=== PATIENT | female | born 1985 | race Caucasian/White ===

== ENCOUNTER → 2017-08-29 | Outpatient (REF) | payer BC ==
[2017-08-29 13:16] LABS: IRON (FE) 143 UG/DL (50-170)
[2017-08-29 13:17] LABS: VITAMIN B12 LEVEL 592 PG/ML (247-911)
== END ==
LOC: M LAB REF 11:50
DX: D64.9 Anemia, unspecified (principal); R63.4 Abnormal weight loss
CPT/HCPCS: 83540

== ENCOUNTER → 2018-08-12 | Outpatient (REF) | payer BC, OTHER ==
[~2018-08-12] MED LIST: ALPR0.25; CIPR-249 PO; FLOM0.4C39 PO; LARI1TAB5; PROT1TAB2 PO; PYRI1TAB5 PO
[2018-08-12 15:52] LABS: BASO # 0.1 10^3/uL (0.0-0.2); BASO % 0.7 % (0.0-1.0); EOS # 0.1 10^3/uL (0.0-0.50); EOS % 0.7 % (0.0-3.0); HEMATOCRIT 42.7 % (36.0-47.0); HEMOGLOBIN 14.6 g/dl (12.0-15.5); LYMPH % 27.5 % (24.0-44.0); MEAN CORPUSCULAR HEMOGLOBIN 29.9 pg (27.0-33.0); MEAN CORPUSCULAR HGB CONC 34.2 g/dl (32.0-36.5); MEAN CORPUSCULAR VOLUME 87.5 fl (80.0-96.0); MONO # 0.6 10^3/uL (0.0-0.8); MONO % 7.8 % (0.0-5.0); NEUTROPHILS # 4.6 10^3/uL (1.8-7.7); NEUTROPHILS % 62.6 % (36.0-66.0); PLATELET COUNT, AUTOMATED 311 10^3/uL (150-450); RED BLOOD COUNT 4.88 10^6/uL (4.00-5.40); WHITE BLOOD COUNT 7.3 10^3/uL (4.0-10.0)
[2018-08-12 15:57] LABS: ALBUMIN 4.3 GM/DL (3.2-5.2); ALT/SGPT 22 U/L (12-78); BILIRUBIN,TOTAL 0.8 MG/DL (0.2-1.0); BLOOD UREA NITROGEN 14 MG/DL (7-18); CALCIUM LEVEL 9.2 MG/DL (8.5-10.1); CARBON DIOXIDE LEVEL 28 MEQ/L (21-32); CHLORIDE LEVEL 102 MEQ/L (98-107); CREATININE FOR GFR 0.82 MG/DL (0.55-1.30); GLOMERULAR FILTRATION RATE > 60.0 (>60); GLUCOSE, FASTING 88 MG/DL (70-100); LIPASE 120 U/L (73-393); POTASSIUM SERUM 3.7 MEQ/L (3.5-5.1); SODIUM LEVEL 140 MEQ/L (136-145); TOTAL PROTEIN 8.1 GM/DL (6.4-8.2)
== END ==
LOC: M LABDRWAD 15:35
PROVIDERS: ATTEND Physician Assistant
DX: R10.9 Unspecified abdominal pain (principal)

== ENCOUNTER 2018-08-13 11:14 | Emergency (ER) | payer BC, OTHER ==
[~2018-08-13] VITALS: Ht 149.9 cm; Wt 54.5 kg
[2018-08-13] MEDS ORDERED: LARI1TAB5 (11:23)
[2018-08-13] MEDS ORDERED: ALPR0.25 (11:23)
[2018-08-13 12:23] LABS: BASO # 0.1 10^3/uL (0.0-0.2); BASO % 0.8 % (0.0-1.0); EOS # 0.1 10^3/uL (0.0-0.50); HEMATOCRIT 43.5 % (36.0-47.0); HEMOGLOBIN 15.1 g/dl (12.0-15.5); LYMPH # 1.9 10^3/uL (1.5-4.5); LYMPH % 30.5 % (24.0-44.0); MEAN CORPUSCULAR HEMOGLOBIN 30.7 pg (27.0-33.0); MEAN CORPUSCULAR HGB CONC 34.7 g/dl (32.0-36.5); MEAN CORPUSCULAR VOLUME 88.4 fl (80.0-96.0); MONO # 0.6 10^3/uL (0.0-0.8); NEUTROPHILS # 3.6 10^3/uL (1.8-7.7); NEUTROPHILS % 57.5 % (36.0-66.0); PLATELET COUNT, AUTOMATED 286 10^3/uL (150-450); RED BLOOD COUNT 4.92 10^6/uL (4.00-5.40); WHITE BLOOD COUNT 6.2 10^3/uL (4.0-10.0)
[2018-08-13] MEDS ORDERED: PANTOPRAZOLE 40MG INJ (PROTONIX) (C9113) IV ONE (12:30)
[2018-08-13] MEDS ORDERED: METOCLOPRAMIDE INJ 10MG/2ML VIAL (J2765) IV ONE (12:30)
[2018-08-13 12:54] LABS: ALBUMIN 4.1 GM/DL (3.2-5.2); ALT/SGPT 23 U/L (12-78); BILIRUBIN,DIRECT 0.2 MG/DL (0.0-0.2); BILIRUBIN,TOTAL 0.9 MG/DL (0.2-1.0); BLOOD UREA NITROGEN 15 MG/DL (7-18); CALCIUM LEVEL 8.9 MG/DL (8.5-10.1); CARBON DIOXIDE LEVEL 27 MEQ/L (21-32); CHLORIDE LEVEL 103 MEQ/L (98-107); CREATININE FOR GFR 0.72 MG/DL (0.55-1.30); GLOMERULAR FILTRATION RATE > 60.0 (>60); GLUCOSE, FASTING 89 MG/DL (70-100); LIPASE 118 U/L (73-393); POTASSIUM SERUM 4.3 MEQ/L (3.5-5.1); SODIUM LEVEL 140 MEQ/L (136-145)
--- NOTE | 2018-08-13 13:15 | REP ---
KUB: Single view. History: Diffuse abdomen pain. Findings: The bowel gas pattern is normal. There are two calcific densities superimposed on the left mid and lower pole left kidney which may be intrarenal nephrolithiasis. The largest of these measures 4 mm in greatest diameter. No normal. Psoas margins and flank stripes are seen. There is a phlebolith in the left pelvis. Impression: Possible intrarenal nephrolithiasis lower pole left kidney. Otherwise negative KUB. Electronically Signed by Fabian Royal MD 08/13/2018 01:07 P
[2018-08-13] MEDS ORDERED: PYRI1TAB5 PO (13:52)
[2018-08-13] MEDS ORDERED: CIPR-249 PO (13:52)
[2018-08-13] MEDS ORDERED: PROT1TAB2 PO (13:52)
[2018-08-13] MEDS ORDERED: FLOM0.4C39 PO (13:53)
[2018-08-13 14:00] VITALS: BP 113/72
[2018-08-13] MEDS ORDERED: TAMSULOSIN 0.4 MG CAP PO ONE (14:00)
[2018-08-13] MEDS ORDERED: CIPROFLOXACIN 500 MG TAB PO ONE (14:00)
[2018-08-13] MEDS ORDERED: PHENAZOPYRIDINE 100 MG TAB PO ONE (14:00)
== END 2018-08-13 14:08 | disposition home or self-care (01) ==
LOC: M ED 11:14
DX: N20.1 Calculus of ureter (principal); N39.0 Urinary tract infection, site not specified; R11.0 Nausea; Z87.891 Personal history of nicotine dependence; Z79.899 Other long term (current) drug therapy
CPT/HCPCS: 74018; 80048; 80076; 81001; 81025; 83690; 85025; 87088; 87186; 96374; 96375; 99284; C9113; J2765

== ENCOUNTER → 2019-03-14 | Outpatient (REF) | payer BC, OTHER | LOC: M LAB REF 12:14 | PROVIDERS: ATTEND Physician Assistant Medical | DX: J02.9 Acute pharyngitis, unspecified (principal) ==

== ENCOUNTER → 2021-10-31 | Outpatient (CLI) | payer OTHER | LOC: M WUC 11:42 | PROVIDERS: ATTEND Nurse Practitioner Adult Health | DX: M54.50 Low back pain, unspecified (principal) ==

== ENCOUNTER → 2022-01-06 | Outpatient (CLI) | payer OTHER | LOC: M RAD 16:57 | PROVIDERS: ATTEND Student in an Organized Health Care Education/Training Program | DX: M25.512 Pain in left shoulder (principal) ==

== ENCOUNTER → 2022-03-24 | Outpatient (REF) | payer OTHER | LOC: M LAB REF 19:18 | PROVIDERS: ATTEND Internal Medicine | DX: R30.0 Dysuria (principal) ==

== ENCOUNTER 2024-06-08 06:57 | Emergency (ER) | payer OTHER ==
[~2024-06-08] VITALS: Ht 149.9 cm; Wt 63.0 kg
[2024-06-08] MEDS ORDERED: ACET500P3 PO (07:33)
[2024-06-08] MEDS ORDERED: IBUP1TAB7 PO (07:33)
[2024-06-08] MEDS: KETOROLAC 30 MG/ML 1ML VIAL IM ONE (09:20)
[2024-06-08] MEDS ORDERED: NAPR-837 PO (10:16)
[2024-06-08] MEDS ORDERED: TRAM50TA2 PO (10:16)
[2024-06-08 10:31] VITALS: BP 111/59; TEMP 96.2; O2SAT 99
== END 2024-06-08 10:43 | disposition home or self-care (01) ==
LOC: M ED 06:57
DX: M25.512 Pain in left shoulder (principal); M75.32 Calcific tendinitis of left shoulder; F41.9 Anxiety disorder, unspecified; Z79.1 Long term (current) use of non-steroidal anti-inflammatories (NSAID); Z79.899 Other long term (current) drug therapy
CPT/HCPCS: 73030; 96372; 99283; J1885